=== PATIENT | male | born 1980 | race Caucasian/White ===

== ENCOUNTER 2023-04-19 11:31 | Emergency (ER) | payer SELFPAY ==
[2023-04-19 11:32] VITALS: BP 121/82; PULSE 97; RESP 16; TEMP 36.6; O2SAT 98; BMI 20.9
[2023-04-19] MEDS: 0.9% Normal Saline 1,000 ML 1000 ML IV (12:29)
--- NOTE | 2023-04-19 12:35 | EX.ED.DYSGE1 ---
HPI History of Present Illness Chief Complaint: Abscess Informant: patient Onset/Context/Timing Onset: Days (6) Context: Gradual Onset Timing: Continuous Quality: Burning, aching Location: Left flank Worsened by: Palpation Relieved by: Nothing Narrative Narrative: Patient presents with redness and swelling to his left flank area that has been getting worse over the last 6 days. Patient was seen at urgent care yesterday and was started on Bactrim and Keflex. Patient was told that if the redness spread beyond the line of demarcation that he should come to the emergency department. Patient states the redness has spread past that line. Patient states that today he also does not feel well so he came to the emergency department. Patient describes the pain as burning and aching. Patient states it is over the left flank area. Patient thinks he was bitten by an insect. Patient denies any fevers or chills. PFSH PFSH Medical History no medical history no medical history Home Medications cephalexin 500 mg capsule 500 mg PO TID 04/19/23 [History Last Taken Unknown] sulfamethoxazole 800 mg-trimethoprim 160 mg tablet 1 tab PO BID 04/19/23 [History Last Taken Unknown] Allergy/AdvReac Type Severity Reaction Status Date / Time No Known Allergies Allergy Verified 04/19/23 11:34 Surgical History no surgical history no surgical history Social History Smoking Status: Current every day smoker tobacco type: cigarettes ROS ROS ED Constitutional Constitutional ED: Denies chills or fever(s) Eyes Eyes: Denies blurry vision or change in vision ENT ENT ED: Denies rhinorrhea or sore throat Cardiovascular Cardiovascular: Denies chest pain or palpitations Respiratory/Chest Respiratory/Chest: Denies cough or dyspnea Gastrointestinal Gastrointestinal: Denies nausea or vomiting Genitourinary Genitourinary ED: Denies dysuria or hematuria Musculoskeletal Musculoskeletal: Reports neck pain; Denies back pain Integumentary Reports rash; Denies abscess Neurologic Neurologic: Denies headache(s) or weakness Allergic/Immunologic Allergic/Immunologic ED: Denies mouth swelling or urticaria EXAM Physical Exam Const Vital Signs: 04/19/23 11:32 Temperature 98 F Temperature Source Temporal Pulse Rate 97 Respiratory Rate 16 Blood Pressure 121/82 H Blood Pressure Mean 95 Pulse Ox 98 Oxygen Delivery Method Room Air Positive well nourished and well developed General Appearance ED: well developed and NAD HEENT Reports moist mucous membranes Negative for trauma Neck supple and no JVD GI non-tender and non-distended Palpation: soft Extremity normal to inspection General Extremety ED: Negative for edema or tenderness General Extremity: Negative for edema Neuro oriented x3, CN's II-XII intact bilaterally and no sensory deficits noted Sensorium / Orientation: alert Motor Exam: strength 5/5 throughout Psych mental status grossly normal Skin Skin Narrative: There is erythema and warmth over the left flank area. There is a superficial wound noted over this area. There is some induration around this area. There is no discharge or drainage noted. There is no fluctuance. There is no evidence of any abscess. There are no vesicles or pustules noted. There are no petechia noted. MDM MDM MDM Narrative Medical decision making narrative: Differential diagnosis includes cellulitis, sepsis, and wound infection. CBC will be obtained to assess for leukocytosis and anemia. Basic metabolic profile will be obtained to assess for electrolyte abnormality and renal function. Lactate will be obtained to assess for sepsis. Blood cultures will be obtained to assess for sepsis. Lab Data Attestation: I reviewed the patient's lab results. Lab results narrative: CBC was reviewed and was within normal limits. Basic metabolic profile was reviewed and was within normal limits. Lactate was reviewed and was normal. Labs: Laboratory Results - last 24 hr 04/19/23 04/19/23 04/19/23 12:20 12:20 12:20 WBC 10.7 RBC 4.93 Hgb 15.0 Hct 46.3 MCV 93.9 MCH 30.4 MCHC 32.4 RDW Std Deviation 41.7 RDW Coeff of Walter 12.0 Plt Count 250 MPV 9.4 Immature Gran % (Auto) 0.600 Neut % (Auto) 74.5 H Lymph % (Auto) 10.[address] [place] % (Auto) 12.6 H Eos % (Auto) 1.0 Baso % (Auto) 0.4 Absolute Neuts (auto) 8.0 H Absolute Lymphs (auto) 1.16 Nucleated RBC % 0 Sodium 136 Potassium 4.5 Chloride 105 Carbon Dioxide 27.0 Anion Gap 4 L BUN 10 Creatinine 0.80 Estim Creat Clear Calc 105.03 Est GFR (MDRD) Af Amer 135 Est GFR (MDRD) Non-Af 111 BUN/Creatinine Ratio 12.5 Glucose 101 Lactic Acid 1.1 Calcium 8.7 Treatment and Re-Evaluation :: Patient given IV fluids. Patient was given a dose of Unasyn. Patient was advised of his findings. Patient was instructed to continue the Keflex and Bactrim as prescribed. Patient was instructed to follow-up with his primary care physician in 5 to 7 days. Patient was instructed return if worse in any way. Patient understood and was agreeable with the plan. All questions were answered. Discharge Plan Triage Chief Complaint: Abscess ED Provider: Satish Beckett Dx/Rx/DC Orders Clinical Impression: Cellulitis of flank Instructions: ED Cellulitis Prescriptions: No Action sulfamethoxazole-trimethoprim 800-160 mg tablet 1 tab PO BID Label Comments: take 1 tablet by mouth twice a day for 7 days cephalexin 500 mg capsule 500 mg PO TID Label Comments: take 1 capsule by mouth three times a day for 7 days Primary Care Provider: Otis Pastrana Referrals: Otis Pastrana MD [Primary Care Provider] - 5-7 Days Disposition Disposition: Home, Self Care
[2023-04-19 12:36] LABS: Absolute Lymphocyte Count 1.16 X10^3/uL (0.83-4.51); Basophil# 0.04 X10^3/uL; Basophil% 0.4 % (0-1); Eosinophil# 0.11 X10^3/uL; Hematocrit 46.3 % (40-54); Lymphocyte # 1.16 X10^3/ul (0.83-4.51); Lymphocyte % 10.9 % (19-41); Mean Corp Hgb Conc 32.4 g/dL (32-36); Mean Corpuscular Hgb 30.4 pg (27.0-32.0); Mean Corpuscular Volume 93.9 fL (80-94); Mean Platelet Vol. 9.4 fl (6.2-12.0); Monocyte# 1.35 X10^3/uL; Monocyte% 12.6 % (0-10); NRBC Flagged by Analyzer 0 % (0-5); Neutrophil # 7.96 X10^3/uL (2.7-7.7); Neutrophil % 74.5 % (47-70); Platelet Count 250 K/mm3 (150-450); RBC Distribution Width SD 41.7 fl (35.1-43.9); Red Blood Count 4.93 M/mm3 (4.6-6.2); White Blood Count 10.7 K/mm3 (4.4-11.0)
[2023-04-19 12:51] LABS: Anion Gap 4 (5-15); BUN 10 mg/dL (7-18); BUN/Creat Ratio 12.5 RATIO (10-20); Calcium,Total 8.7 mg/dL (8.5-10.1); Chloride 105 mmol/L (98-107); EST Glomerular Filtration Rate 111 mL/min (>60); Est Glom Filt Rate - Afr Amer 135 mL/min (>60); Estimated Creatinine Clearance 105.03 ml/min; Glucose 101 mg/dL (74-106); Potassium 4.5 mmol/L (3.5-5.1); Sodium Level 136 mmol/L (136-145)
[2023-04-19 13:13] LABS: Lactic Acid 1.1 mmol/L (0.4-1.9)
[2023-04-19 13:36] VITALS: PULSE 81; TEMP -8.8; TEMP 16; O2SAT 100
== END 2023-04-19 13:37 | disposition home or self-care (01) ==
PROVIDERS: Emergency Provider Emergency Medicine; PCP Family Medicine; Visit Provider Emergency Medicine
DX: L03.90 Cellulitis, unspecified (principal); F17.210 Nicotine dependence, cigarettes, uncomplicated
CPT/HCPCS: 80048; 83605; 85025; 87040; 96365; 99283; J7030; J0295